=== PATIENT | female | born 1975 | race Caucasian/White ===

== ENCOUNTER 2017-02-21 10:29 | Emergency (ER) | payer MEDICAID ==
[~2017-02-21] VITALS: Ht 160 cm; Wt 63.5 kg
[2017-02-21 10:45] VITALS: BP 116/75; PULSE 94; RESP 16; TEMP 97.2; O2SAT 96
[2017-02-21] MEDS ORDERED: IBUPROFEN 800 MG TABLET PO ONE (11:15)
[2017-02-21 12:30] VITALS: BP 116/75; PULSE 94; RESP 16; TEMP 97.2; O2SAT 96
== END 2017-02-21 12:30 | disposition home or self-care (01) ==
LOC: SED 10:29
DX: S82.831A Other fracture of upper and lower end of right fibula, initial encounter for closed fracture (principal); W01.0XXA Fall on same level from slipping, tripping and stumbling without subsequent striking against object, initial encounter; Y93.89 Activity, other specified; Y92.89 Other specified places as the place of occurrence of the external cause; Y99.8 Other external cause status
CPT/HCPCS: 99284